=== PATIENT | female | born 1960 | race Caucasian/White ===

== ENCOUNTER 2017-05-31 06:00 | Inpatient (IN) | payer BC ==
[~2017-05-31] VITALS: Ht 167.6 cm; Wt 91.8 kg
[~2017-05-31 06:00] MED LIST: ADVIL200 MG PO; CYCLOBENZAPRINE10 MG PO; ELIQUIS2.5 MG PO; FERGON 240 MG240 MG PO; FISH OIL 1,0001 CA1 PO; MULTIPLE VITAMI1 TA1 PO; PERCOCET 10/3251 TA1 PO; PRILOSEC20 MG PO; PROZAC40 MG PO; SYNTHROID88 MCG PO; VITAMIN C1000 MG PO; VITAMIN D5000 UNIT PO
[2017-05-31] MEDS ORDERED: ZITHROMAX TRI-500 MG PO (06:41)
[2017-05-31 12:44] VITALS: Ht 167.6 cm; Wt 91.8 kg
[2017-06-08 13:03] VITALS: BP 94/62
[2017-06-08] MEDS ORDERED: Ancef 2 GM/Dextrose IV (13:56)
[2017-06-08] MEDS ORDERED: FLORANEX / LACT1 TAB PO (13:57)
[2017-06-08] MEDS ORDERED: COLACE100 MG PO (13:57)
[2017-06-08] MEDS ORDERED: ELIQUIS2.5 MG PO (13:57)
[2017-06-08] MEDS ORDERED: MIRALAX17 GM PO (13:57)
[2017-06-08] MEDS ORDERED: OxyCONTIN PO (13:58)
[2017-06-08] MEDS ORDERED: DILAUDID2 MG PO (13:58)
== END 2017-06-08 17:35 | DRG 464 ==
LOC: D.SDCHOLD 06:00 → D.MS 06:00 → D.SDCHOLD 08:15 → D.MS 12:21 → D.SDCHOLD 13:34 → D.MS 13:36
PROVIDERS: ADMIT Orthopaedic Surgery
PROC: 0SHB08Z Insertion of Spacer into Left Hip Joint, Open Approach (ICD-10-PCS; 2017-05-31)
PROC: 0SPB0JZ Removal of Synthetic Substitute from Left Hip Joint, Open Approach (ICD-10-PCS; principal; 2017-05-31 08:15)
PROC: 0SWBXJZ Revision of Synthetic Substitute in Left Hip Joint, External Approach (ICD-10-PCS; 2017-06-03)
PROC: 0SWB0JZ Revision of Synthetic Substitute in Left Hip Joint, Open Approach (ICD-10-PCS; 2017-06-04)
DX: T84.52XA Infection and inflammatory reaction due to internal left hip prosthesis, initial encounter (principal); D62 Acute posthemorrhagic anemia; K59.04 Chronic idiopathic constipation; K21.9 Gastro-esophageal reflux disease without esophagitis; F32.9 Major depressive disorder, single episode, unspecified; E03.9 Hypothyroidism, unspecified; T84.021A Dislocation of internal left hip prosthesis, initial encounter

== ENCOUNTER 2017-06-08 17:09 | Inpatient (IN) | payer BC ==
[~2017-06-08] VITALS: Ht 167.6 cm; Wt 90.3 kg
--- NOTE | ~2017-06-08 | RHP ---
PATIENT: VERENA MONROE MEDICAL RECORD: [id number] ACCOUNT: [id number] LOCATION:[facility]1113 : 60 ADMISSION DATE: 06/08/17 REHABILITATION HISTORY AND PHYSICAL EXAMINATION POST ADMISSION PHYSICIAN EXAMINATION Post-admission Physical Examination and History and Physical DATE OF ADMISSION TO THE REHAB: 06/08/2017 ADMITTING DIAGNOSES: Infection and inflammatory reaction to internal left hip prosthesis. HISTORY OF PRESENT ILLNESS: The patient is admitted to inpatient rehab for orthopedic, status post unilateral hip replacement with infection, inflammatory reaction due to an internal left hip prosthesis due to group A strep. She is 57-year-old female patient, was admitted due to concern of septic hip infection after removal of the hip prosthesis and placement of spacer, spacer became displaced and had to be reset on June 05. She reports that she has had persistent pain ever since this was placed last year. She has had intermittent episodes of redness and swelling that required lancing; has been lanced about 4 times. She reports her cultures were only taking once, but did not grow any bacteria. She lanced herself recently prior to the hospital stay. The incision was slow to heal. She was working and stated only walking with a little bit of a limp prior to hospitalization. She lives alone and was independent with her ADLs and mobility. She is currently set up for moderate to max assist with ADLs and total assist for mobility secondary to toe-touch weightbearing to left lower extremity with antibiotic spacer in place using a rolling walker, required 2-person assist. She is being followed by infectious disease secondary to left hip culture. Group A strep will require approximately 6 weeks of IV antibiotic therapy. She will return to home upon discharge from rehab. COMORBIDITIES: Include prosthetic hip infection, hip fracture, acute constipation, gastroesophageal reflux disease, chronic depression, acute anemia, hypothyroidism, and history of total hip arthroplasty. PAST MEDICAL HISTORY: Significant for thyroid problems, acid reflux, chronic back pain, menopause and depression. PAST SURGICAL HISTORY: Includes right hip replacement and revision of left hip. ALLERGIES: PENICILLIN, CODEINE, HYDROCODONE, TRAMADOL, BENADRYL, AND PHENERGAN. CURRENT MEDICATIONS: Include Floranex 460 mg daily. She is on polyethylene glycol 17 grams in 8 ounces of water daily, Protonix 40 mg daily, multivitamin daily. She is on omega 3 one cap daily. She is on vitamin D 5000 units daily, vitamin C 1000 mg daily. She is on ferrous sulfate 325 mg b.i.d., oxycodone ER 20 mg b.i.d., Dilaudid 4 mg q.4 hours p.r.n. pain, Colace 100 mg b.i.d., Flexeril 10 mg t.i.d. p.r.n. spasm, Eliquis 2.5 mg b.i.d., Ancef 2 grams q.8 hours, and MiraLax as needed. HABITS: No current alcohol or tobacco use. FAMILY HISTORY: Noncontributory. HISTORY AND PHYSICAL [id number] VERENA MONROE SOCIAL HISTORY: The patient hopes to return back home and get back to her prior level of function. REVIEW OF SYSTEMS: GENERAL: Denies weakness or fatigue. HEENT: Denies cold, cough, or congestion. CARDIOVASCULAR: Denies chest pain. PHYSICAL EXAMINATION: VITAL SIGNS: Stable, afebrile. GENERAL: A somewhat obese female, in no acute distress, alert upon exam. HEENT: Normocephalic and atraumatic. Mucosa moist. NECK: Supple. No lymphadenopathy. LUNGS: Clear at this time. HEART: Regular rate and rhythm. ABDOMEN: Benign. EXTREMITIES: Consistent with hip replacement. NEUROLOGIC: Intact. LABORATORY DATA: Her white count is 8.1, H&H 9.1 and 28.5 and platelet count is 458. Sodium is 138, potassium 3.4, BUN and creatinine of 10 and 0.6 and blood sugar was noted to be 94. Her sed rate was noted to be 100. ASSESSMENT: This is a 57-year-old female patient admitted to rehab with a working diagnosis of status post a spacer placement secondary to infected left total hip prosthesis. The patient has potential to make improvement. We instituted the following multidisciplinary therapies including to but not limited to physical, occupational, respiratory, speech, nutritional services, prosthetics and orthotics. Given her complex condition and risk for more complications, rehabilitation services cannot be provided at a low level of care such as a long-term facility. PLAN: 1. Admit to [facility] rehab for intensive inpatient therapy to include the following disciplines: A. Physical therapy to improve gait, all transfer skills and bed mobility to a modified independent level. B. Occupational therapy to improve activities of daily living to a modified independent level. C. Case management to assist with discharge planning and placement options. D. Nutrition to assist with nutritional needs. E. Rehabilitation nursing to assist in monitoring the patient's underlying medical conditions and to assist with any type of bowel or bladder management. 2. The patient's current medication and medical care will be continued. 3. The patient will be placed on standard fall precautions. 4. Watch her sed rate and CRP closely on these antibiotics. 5. Hopefully, get her back transferring well and back home prior to her next surgery. TRANSINT:[id number] Voice Confirmation ID: [id number] DOCUMENT ID: [id number] KERA notes whether there has been none or any medical/functional change since admission: - No change since prescreen. HISTORY AND PHYSICAL [id number] VERENA MONROE attests patient continues to be appropriate for IRF: - Continues to be appropriate. COREEN PARK MD CC: [id number] DICTATION DATE: 06/09/17 0851 SENIOR FRONT END WEB DEVELOPER: 06/09/[address] [facility] [address] [id number]
[~2017-06-08 17:09] MED LIST changes: +Ancef 2 GM/Dextrose IV; +COLACE100 MG PO; +DILAUDID2 MG PO; +FLORANEX / LACT1 TAB PO; +MIRALAX17 GM PO; +OxyCONTIN PO; +ZITHROMAX TRI-500 MG PO
[2017-06-08 18:31] VITALS: BP 98/71; BMI 32.2
[2017-06-08 20:02] VITALS: BP 104/65
--- NOTE | 2017-06-08 20:02 | NUR ---
RECIEVED SITTING UP ON THE SIDE OF THE BED. DENIES ANY DISCOMFORT. REQUESTING ASSISTANCE WITH PUTTING HIS PENIS IN URINAL. ASSISTED AND HAD NO RESULTS. DENIES ANY PAIN AT THIS TIME.
--- NOTE | 2017-06-08 20:02 | NUR ---
RECIEVED UP IN BED WITH EYES OPEN. REQUESTED PAIN MEDICATION EARLIER. MEDS GIVEN PER ORDERS, NO OTHER C/O VOICED. PLEASANT AND COOPERATIVE. F/C PATENT AND DRAINING CLEAR YELLOW URINE TO BEDSIDE DRAINAGE SYSTEM.
--- NOTE | 2017-06-09 00:14 | NUR ---
RESTING IN BED WITH EYES CLOSED. NO S/S OF DISTRESS OBSERVED.
[2017-06-09 05:55] LABS: BASOPHILS 0.2 % (0-2); EOSINOPHILS 2.6 % (0-7); HEMATOCRIT 28.5 % (36.0-48.0); HEMOGLOBIN 9.1 g/dL (12-16); IMMATURE GRANULOCYTES 0.9 % (0-5); LYMPHOCYTES 32.1 % (15-50); MCH 26.9 pg (26.0-34.0); MCHC 31.9 g/dL (31.0-37.0); MCV 84.3 fL (80.0-100.0); MEAN PLATELET VOLUME 8.8 fL (7.4-10.4); MONOCYTES 6.6 % (2-11); NEUTROPHILS 57.6 % (40-80); PLATELET COUNT 458 10x3/uL (130-400); RBC 3.38 10x6/uL (4.00-5.40); RDW 17.4 % (11.5-14.5); WBC 8.1 10x3/uL (4.8-10.8)
[2017-06-09 06:23] LABS: C-REACTIVE PROTEIN 9.4 mg/dL (0.0-0.9); CALC OSMOLALITY 274 mosm/kg (275-300); CALCIUM 8.2 mg/dL (8.5-10.1); CHLORIDE - SERUM 100 mmol/L (98-107); CREATINE KINASE 64 UL (21-215); CREATININE - SERUM 0.6 mg/dL (0.6-1.3); GLUCOSE 94 mg/dL (74-106); POTASSIUM - SERUM 3.4 mmol/L (3.5-5.1); SODIUM 138 mmol/L (136-145); UREA NITROGEN 10 mg/dL (7-18); eGFR NON AFRICAN AMERICAN > 90 mL/min (90-120)
[2017-06-09 07:28] LABS: ERYTHROCYTE SEDIMENTATION RATE 100 mm/hr (0-30)
[2017-06-09 08:34] VITALS: BP 92/50
--- NOTE | 2017-06-09 09:00 | NUR ---
PT AM MEDS ADMINISTERED. PT DENIES NEEDS AT THIS TIME. BED LOW. CLINR EACH.
--- NOTE | 2017-06-09 12:30 | NUR ---
PT REQ AND REC'D PAIN MEDICATION. PT ENCOURAGED TO EAT SOME LUNCH. PT ATE 15% AND STATES SHE'S "JUST NOT HUNGRY." WCTM.
--- NOTE | 2017-06-09 13:07 | NUR ---
PT REQ AND REC'D PRN PAIN MED AND FLEXERIL. WCTM.
[2017-06-09 13:59] VITALS: Ht 167.6 cm; Wt 90.3 kg
--- NOTE | 2017-06-09 16:40 | NUR ---
PT RESTING IN BED, SONY NEEDS. WCTM.
--- NOTE | 2017-06-09 17:25 | NUR ---
PT PICC LINE DRESSING CHANGE. STERILE PRECAUTIONS OBSERVED.
[2017-06-09 19:25] VITALS: BP 107/66
--- NOTE | 2017-06-09 19:25 | NUR ---
RESTING IN BED WITH EYES OPEN AND TV ON. NO S/S OF DISTRESS OBSERVED. PLEASANT AND TALKATIVE. DENIES ANY NEEDS AT THIS TIME. F/C PATENT AND DRAINING CLEAR YELLOW URINE TO BEDSIDE DRAINAGE SYSTEM.
--- NOTE | 2017-06-09 21:15 | NUR ---
RESTING IN BED AT THIS TIME WITH EYES CLOSED. NO S/S OF DISTRESS OBSERVED. CALL LIGHT AND OVERBED TABLE IN REACH.
--- NOTE | 2017-06-09 23:45 | NUR ---
WHEN ATTEMPTING TO ASSIST PT STRAIGHTEN OUT PAD UNDER HER SHE BECAME ANXIOUS AND SCARED TO TRY AND TURN OVER. ATTEMPTES TO EDUCATE ON THE NEED TO REPOSITION UNSUCCESSFUL. C/O PAIN AT 10 AND REQUESTED PAIN MEDICATION. MEDICATION GIVEN AND CONTINUED TO SPEAK WITH HER AND APPEARED TO CALM DOWN. STATED "I KNOW I'M AFRAID OF THE PAIN. THIS TIME IS WORSE. I'M AFRAID I WON'T BE ABLWE TO KEEP UP WITH THERAPY". ASKED IF IT MADE HER ANXIOUS AND STATED "OH YES". DRESSING TO LEFT HIP IS BLOOD SOAKED. UNABLE TO REMOVE THE PAD UNDER HER. PT ASKED "CAN I GET ONE OF THOSE BARS THAT GO OVER THE BED. I KNOW I WILL BED ABLE TO PICK MY BOTTOM STRAIGHT UP OFF THE BED".EDUCATED ON THE GOAL FOR THERAPY IS FOR HER TO RETURN TO PREVIOUS LEVEL OF FUNCTIONING. BLADDER TRAINING STARTED THIS SHIFT. PT REQUESTED THE F/C STAY IN. WILL INFORM MD OF SITUATION.
--- NOTE | 2017-06-10 02:20 | NUR ---
RESTING IN BED WITH EYES CLOSED. NO S/S OF DISTRESS OBSERVED. CALL LIGHT AND OVERBED TABLE IN REACH.
--- NOTE | 2017-06-10 06:10 | NUR ---
RESTING IN BED WITH EYES CLOSED. NO S/S OF DISTRESS OBSERVED. CALL LIGHT IN REACH.
--- NOTE | 2017-06-10 08:05 | NUR ---
PT AM MEDS ADMINSITERED. PT HAS ORDERED OXY AND STATES PAIN AT A 7-8. WCTM.
[2017-06-10 08:28] VITALS: BP 109/69
--- NOTE | 2017-06-10 08:45 | NUR ---
DR JUNE'S OFFICE CALLED. ORDERS TO HOLD THERAPY UNTIL DR JUNE COMES TO SEE PT.
--- NOTE | 2017-06-10 09:50 | NUR ---
PT GIVEN ORDERED KLONOPIN AT THIS TIME. PT DENIES NEEDS. WCTM.
--- NOTE | 2017-06-10 16:08 | NUR ---
PT RESTING IN BED WATCHING TV, DENIES NEEDS. WCTM .
--- NOTE | 2017-06-10 17:00 | NUR ---
DR JUNE IN TO SEE PT. HIP SPACER DISLOCATED. SCHEDULED FOR SX TOMORROW. WAITING FOR ROOM ON MED SURG AT THIS TIME.
[2017-06-10] MEDS ORDERED: KLONOPIN1 MG PO (17:54)
== END 2017-06-10 19:52 | disposition short-term general hospital (02) | DRG 949 ==
LOC: D.REHAB 17:09
PROVIDERS: ADMIT Emergency Medicine
DX: T84.52XD Infection and inflammatory reaction due to internal left hip prosthesis, subsequent encounter (principal); D62 Acute posthemorrhagic anemia; T84.021A Dislocation of internal left hip prosthesis, initial encounter; K21.9 Gastro-esophageal reflux disease without esophagitis; F32.9 Major depressive disorder, single episode, unspecified; E03.9 Hypothyroidism, unspecified; K59.09 Other constipation

== ENCOUNTER 2017-06-10 20:18 | Inpatient (IN) | payer BC ==
--- NOTE | 2017-06-10 19:30 | NUR ---
REC'D PT FROM REHAB WITH NO VISIBLE SIGNS OF DISTRESS. BED IN LOWEST POSITION AMD CALL LIGHT WITHIN REACH. PATIENT'S BANDAGE HAS VISIBLE BLOOD ON THE LEFT HIP. KELSEY MOORE STATED DR. JUNE HAS SEEN THE PT AND KNOWS ABOUT THE PT'S HIP BLEEDING. PT'S BED IN LOWEST POSITION AND CALL LIGHT WITHIN REACH. ENCOURAGED THE PATIENT TO CALL IF SHE HAS NEEDS.
[~2017-06-10 20:18] MED LIST changes: +KLONOPIN1 MG PO
[2017-06-10 21:59] LABS: BASOPHILS 0.2 % (0-2); EOSINOPHILS 1.7 % (0-7); HEMATOCRIT 28.7 % (36.0-48.0); HEMOGLOBIN 9.2 g/dL (12-16); IMMATURE GRANULOCYTES 0.3 % (0-5); MCHC 32.1 g/dL (31.0-37.0); MCV 84.2 fL (80.0-100.0); MEAN PLATELET VOLUME 8.4 fL (7.4-10.4); MONOCYTES 6.3 % (2-11); NEUTROPHILS 63.5 % (40-80); PLATELET COUNT 441 10x3/uL (130-400); RBC 3.41 10x6/uL (4.00-5.40); RDW 17.5 % (11.5-14.5); WBC 9.9 10x3/uL (4.8-10.8)
[2017-06-10 22:04] LABS: CALC OSMOLALITY 276 mosm/kg (275-300); CALCIUM 8.5 mg/dL (8.5-10.1); CARBON DIOXIDE 29.5 mmol/L (21.0-32.0); CHLORIDE - SERUM 105 mmol/L (98-107); CREATININE - SERUM 0.5 mg/dL (0.6-1.3); GLUCOSE 107 mg/dL (74-106); POTASSIUM - SERUM 3.7 mmol/L (3.5-5.1); SODIUM 140 mmol/L (136-145); UREA NITROGEN 8 mg/dL (7-18); eGFR NON AFRICAN AMERICAN > 90 mL/min (90-120)
[2017-06-10 23:00] VITALS: BP 118/72; BMI 32.2
[2017-06-11] VITALS: BP 126/72
--- NOTE | 2017-06-11 00:30 | NUR ---
RECEIVED CARE OF PATIENT.
[2017-06-11 04:00] VITALS: BP 133/80
--- NOTE | 2017-06-11 07:40 | NUR ---
PT AOX4 RESP EVEN AND NONLABORED PT DENIES NEEDS AT THIS TIME IV TO RIGHT UPPER ARM PATENT AND INTACT AT THIS TIME SRX2 BED AT LOWEST SETTING CALL LIGHT WITHIN REACH WILL CONTINUE TO MONITOR
[2017-06-11 08:32] VITALS: BP 122/78
--- NOTE | 2017-06-11 10:37 | NUR ---
Patient Name: VERENA MONROE Admission Status: Elective Accout number: [id number] Admission Date: 06-10-2017 : 1960 Admission Diagnosis:DISLOCATION OF INTERNAL RIGHT HIP PROSTHESIS, INIT ENCN Attending: JAY JUNE Current LOS: 1 Anticipated DC Date: 06-14-2017 Planned Disposition: Residential Facility Primary Insurance: [employer] [facility] Discharge Planning Comments: CM MET WITH PATIENT REGARDING D/C NEEDS AND PLANS. PATIENT STATED SHE WILL GO HOME WITH HOME HEALTH AT DISCHARGE. PATIENT STATED HER MOTHER WILL DRIVE HER AND THERE IS ONE STEP TO ENTER HOME AND NO STAIRS INSIDE. PATIENT STATED SHE HAS BEEN INDEPENDENT WITH HER CARE AND HAS A WALKER, AND TOILET SEAT WITH HANDLES AT HOME. PATIENTS PCP IS DR. HOFFMAN IN [place] AND USES [facility]. PATIENT STATED SHE WILL CHOOSE HOME HEALTH WEDNESDAY (WANTS TO TALK WITH FRIENDS FIRST). CM WILL CONTINUE TO FOLLOW PATIENT WITH D/C NEEDS AND PLANS. PCP DR. HOFFMAN IN [place] [facility] [place] [phone] [place] ([facility] [place]) [phone] Recruiter: Miladys Browning Is the patient Alert and Oriented? Yes 0 * How many steps to enter\exit or inside your home? 1 0 * PCP DR. HOFFMAN ([place]) 0 * Pharmacy [facility] IN [place] ON [facility] 0 * Preadmission Environment Home Alone 0 * ADLs Independent 0 * Equipment Walker 0 * Other Equipment TOILET SEAT WITH HANDLES 0 * List name and contact numbers for known caregivers / representatives who currently or will assist patient after discharge: [place] [phone] ([facility] [place]) 0 * Community resources currently utilized None 0 * Additional services required to return to the preadmission environment? Yes 0 * Can the patient safely return to the preadmission environment? Yes 0 * Has this patient been hospitalized within the prior 30 days at any hospital? Yes 0 Grand Total: 0
[2017-06-11 12:12] VITALS: BP 122/77
[2017-06-11 16:04] VITALS: BP 119/66
[2017-06-11 20:00] VITALS: BP 109/68
[2017-06-12] VITALS: BP 123/73
[2017-06-12 04:00] VITALS: BP 119/79
--- NOTE | 2017-06-12 07:40 | NUR ---
PT AOX4 RESP EVEN AND NONLABORED PT DENIES NEEDS AT THIS TIME IV TO RIGHT UPPER ARM PATENT AND INTACT AT THIS TIME. SRX2 BED AT LOWEST SETTING CALL LIGHT WITHIN REACH WILL CONTINUE TO MONITOR
[2017-06-12 08:40] VITALS: BP 124/76
[2017-06-12 10:54] VITALS: BP 133/69
[2017-06-13] VITALS: BP 127/80
[2017-06-13 04:00] VITALS: BP 134/81
--- NOTE | 2017-06-13 04:05 | NUR ---
PT RESTING QUIETLY, EYES CLOSED. PAIN WELL CONTROLLED WITH BILL OF MATERIALS CLERK. DRESSING TO LEFT HIP C/D/I. NO DISTRESS NOTED. CONTINUE TO MONITOR.
[2017-06-13 05:32] LABS: HEMATOCRIT 27.4 % (36.0-48.0); HEMOGLOBIN 8.6 g/dL (12-16); MCH 26.5 pg (26.0-34.0); MCHC 31.4 g/dL (31.0-37.0); MCV 84.6 fL (80.0-100.0); MEAN PLATELET VOLUME 8.7 fL (7.4-10.4); RBC 3.24 10x6/uL (4.00-5.40); RDW 17.1 % (11.5-14.5); WBC 13.8 10x3/uL (4.8-10.8)
--- NOTE | 2017-06-13 07:40 | NUR ---
A&O, DENIES NEEDS, NO DISTRESS NOTED, BED LOWEST POSITION, CALL LIGHT IN REACH, BED LOWEST POSITION, BANDAGE TO LEFT HIP C/D/I, WILL CONTINUE TO MONITOR
[2017-06-13 10:11] VITALS: BP 117/84
[2017-06-13 12:43] VITALS: BP 100/64
[2017-06-13 20:00] VITALS: BP 104/64
[2017-06-14] VITALS: BP 114/64
--- NOTE | 2017-06-14 01:21 | NUR ---
PT RESTING QUIETLY, EYES CLOSED. LEFT HIP DRESSING C/D/I. EMPTIED KATJA DRAIN 30 MLS BLOODY DRAINAGE AT START OF SHIFT. PT USES OVERHEAD TRAPEZE TO SHIFT POSITION IN BED. PAIN WELL CONTROLLED WITH WATER USE INSPECTOR. WILL CONTINUE TO MONITOR.
[2017-06-14 04:00] VITALS: BP 97/61
[2017-06-14 05:40] LABS: HEMOGLOBIN 8.2 g/dL (12-16); MCH 27.2 pg (26.0-34.0); MCHC 31.5 g/dL (31.0-37.0); MCV 86.1 fL (80.0-100.0); MEAN PLATELET VOLUME 8.7 fL (7.4-10.4); RBC 3.02 10x6/uL (4.00-5.40); RDW 17.5 % (11.5-14.5)
[2017-06-14 05:43] LABS: WBC 8.9 10x3/uL (4.8-10.8)
--- NOTE | 2017-06-14 07:15 | NUR ---
AWAKE AND ALERT AT THIS TIME. BED ALARM ON AND CALL GLORIA COLLADO REACH. SRX2 WITH BED IN LOWEST POSITION AND SRX2. IV INFUSING TO RIGHT PICC LINE. WILL CONTINUE WITH PLAN OF CARE.
--- NOTE | 2017-06-14 07:58 | NUR ---
SCHEDULED MEDICATIONS ADMINISTERED AT THIS TIME WELL PRN FLEXERIL FOR MUSCLE SPASMS. TAKEN WITHOUT DIFFICULTY. DENIES FURTHER NEEDS AT THIS TIME. WILL CONTINUE WITH PLAN OF CARE.
[2017-06-14 08:43] VITALS: BP 100/62
--- NOTE | 2017-06-14 13:15 | NUR ---
RECEIVING BED BATH BY BOBBIN STRIPPER AT THIS TIME. KATJA DRAIN TO LEFT HIP EMPTIED AND 50ML OF BLOOD GOTTEN FROM DRAIN. DRAIN COMPRESSED AND DRESSING TO LEFT HIP C/D/I.
--- NOTE | 2017-06-14 15:09 | NUR ---
PRN PERCOCET ADMINISTERED FOR PAIN 5/10 AT THIS TIME.
[2017-06-14 16:13] VITALS: BP 99/47
--- NOTE | 2017-06-14 19:30 | NUR ---
PT LYING IN BED STATED NO NEEDS AT THIS TIME, BED IN LOW POSITION, CALL LIGHT IN REAVCH NO SIGNS OF DISTRESS, WILL CONTINUE WITH PLAN OF CARE
[2017-06-14 19:57] VITALS: BP 97/62
--- NOTE | 2017-06-14 22:30 | NUR ---
PT LYING IN BED, WANTED PILLOW BELOW HER LEFT HIP TO AID IN KEEPING HER LEFT LEG TURNED INWARD, ALSO WANTED A SET OF BLANKETS AT THE END OF HER FEET TO WHERE HER FEET WERE PUSHING AGAINST IT. PT STATED PAIN STILL AT ABOUT A 6. FLEXERILL AVAIL AFTER MIDNIGHT. PT JUST HAD 9 O'CLOCK MEDS WHICH INCLUDED PAIN MEDS, ADVISED TO GIVE IT A LITTLE TIME TO WORK, REMINDED PT OF MAGICIAN HELPER WELL.
[2017-06-15 00:11] VITALS: BP 98/60
--- NOTE | 2017-06-15 02:00 | NUR ---
PT IN BED WITH NO DISTRESS. RESPIRATIONS EVEN AND UNLABORED. SIDE RAILS X 2. BED IS LOW. CALL LIGHT IN REACH.
--- NOTE | 2017-06-15 03:46 | NUR ---
PATIENT RESTING WITH EYES CLOSED AND NO VISIBLE SIGNS OF DISTRESS. BED IN LOWEST POSITION AND CALL LIGHT WITHIN REACH.
[2017-06-15 04:00] VITALS: BP 100/63
--- NOTE | 2017-06-15 07:05 | NUR ---
AWAKE AND ALERT. DENIES NEEDS AT THIS TIME. CALL LIGHT IN REACH, WILL CONTINUE WITH PLAN OF CARE.
[2017-06-15 09:07] VITALS: BP 110/63
--- NOTE | 2017-06-15 09:12 | NUR ---
SCHEDULED MEDICATIONS ADMINISTERED AND PRN FLEXERIL ADMINISTERED FOR MUSCLE SPASMS. IN BED WITH CALL LIGHT IN REACH, BED IN LOWEST POSITION AND WHEELS LOCKED. WILL CONTINUE WITH PLAN OF CARE.
--- NOTE | 2017-06-15 10:22 | NUR ---
PRN DILAUDID ADMINISTERED FOR PAIN PER ORDER. PORTER D/C WITH CATH TIP INTACT PER ORDER AND IV SALINE LOCKED AND EMBOSSING MACHINE TENDER D/C.
[2017-06-15 10:43] LABS: HEMATOCRIT 27.5 % (36.0-48.0); HEMOGLOBIN 8.6 g/dL (12-16); MCH 26.7 pg (26.0-34.0); MCHC 31.3 g/dL (31.0-37.0); MCV 85.4 fL (80.0-100.0); MEAN PLATELET VOLUME 9.2 fL (7.4-10.4); PLATELET COUNT 418 10x3/uL (130-400); RBC 3.22 10x6/uL (4.00-5.40); RDW 17.2 % (11.5-14.5); WBC 8.6 10x3/uL (4.8-10.8)
[2017-06-15 10:51] LABS: C-REACTIVE PROTEIN 2.7 mg/dL (0.0-0.9); CALC OSMOLALITY 278 mosm/kg (275-300); CALCIUM 8.4 mg/dL (8.5-10.1); CARBON DIOXIDE 24.1 mmol/L (21.0-32.0); CHLORIDE - SERUM 105 mmol/L (98-107); CREATININE - SERUM 0.7 mg/dL (0.6-1.3); POTASSIUM - SERUM 3.4 mmol/L (3.5-5.1); SODIUM 138 mmol/L (136-145); UREA NITROGEN 8 mg/dL (7-18); eGFR NON AFRICAN AMERICAN > 90 mL/min (90-120)
[2017-06-15 10:52] LABS: GLUCOSE 193 mg/dL (74-106)
--- NOTE | 2017-06-15 10:54 | NUR ---
CM REASSESSMENT NOTE: CM MET WITH PATIENT AND SHE SIGNED THE LUC FORM FOR [facility] IN [place]. IV ANTIBIOTIC ORDER WAS FAXED TO [facility] IN [place]. DISCHARGE WILL BE LATER IN THE WEEK PER CLINTON DUONG. CM WILL CONTINUE TO FOLLOW PATIENT WITH D/C NEEDS AND PLANS. [facility]- [phone] [place] ([place]) [phone] ([place])
[2017-06-15 11:35] LABS: ANISOCYTOSIS OCC; EOSINOPHILS 4 % (0-7); HYPOCHROMASIA OCC; LYMPHOCYTES 36 % (15-50); MONOCYTES 1 % (2-11); NEUTROPHILS 57 % (40-80); PLATELET ESTIMATE INCREASED
[2017-06-15 12:14] LABS: ERYTHROCYTE SEDIMENTATION RATE 80 mm/hr (0-30)
[2017-06-15 12:31] VITALS: BP 108/67
--- NOTE | 2017-06-15 13:05 | NUR ---
KATJA DRAIN TO LEFT HIP D/C WITH TIP INTACT. PT TOLERATED WITHOUT MINIMAL COMPLAINT OF PAIN.
--- NOTE | 2017-06-15 15:40 | NUR ---
PRN DILAUDID ADMINISTERED PER ORDER.
--- NOTE | 2017-06-15 16:29 | NUR ---
VOIDED ON BEDSIDE COMMODE WITHOUT DIFFICULTY.
--- NOTE | 2017-06-15 19:30 | NUR ---
PT IS LYING IN BED ON HER BACK, EYES ARE CLOSED , TV IS ON, PT AWOKE SLIGHTLY WHEN ASSESSMENT WAS BEING DONE, STATED NO NEEDS AT THIS TIME. BED IS IN LOW POSITION CALL LIGHT IN REACH NO SIGNS OF DISTRESS, WILL CONTINUE WITH PLAN OF CARE
[2017-06-15 20:00] VITALS: BP 114/69
[2017-06-16] VITALS: BP 102/61
--- NOTE | 2017-06-16 02:00 | NUR ---
PT IN BED WITH NO DISTRESS. RESPIRATIONS EVEN AND UNLABORED. SIDE RAILS X 2. BED IS LOW. CALL LIGHT IN REACH.
[2017-06-16 04:00] VITALS: BP 110/62
[2017-06-16 06:12] LABS: HEMATOCRIT 26.5 % (36.0-48.0); HEMOGLOBIN 8.3 g/dL (12-16); MCH 26.7 pg (26.0-34.0); MCHC 31.3 g/dL (31.0-37.0); MCV 85.2 fL (80.0-100.0); MEAN PLATELET VOLUME 8.8 fL (7.4-10.4); RBC 3.11 10x6/uL (4.00-5.40); RDW 17.2 % (11.5-14.5); WBC 8.2 10x3/uL (4.8-10.8)
[2017-06-16 06:42] LABS: CALC OSMOLALITY 272 mosm/kg (275-300); CALCIUM 8.4 mg/dL (8.5-10.1); CARBON DIOXIDE 25.4 mmol/L (21.0-32.0); CHLORIDE - SERUM 103 mmol/L (98-107); CREATININE - SERUM 0.5 mg/dL (0.6-1.3); GLUCOSE 100 mg/dL (74-106); POTASSIUM - SERUM 3.7 mmol/L (3.5-5.1); SODIUM 137 mmol/L (136-145); UREA NITROGEN 9 mg/dL (7-18); eGFR NON AFRICAN AMERICAN > 90 mL/min (90-120)
--- NOTE | 2017-06-16 07:34 | NUR ---
LYING SUPINE WITH RESPIRATIONS EVEN AND NON LABORED. TOLU MAT ALARM ON AND IN USE. CALL LIGHT IN REACH, WILL CONTINUE WITH PLAN OF CARE.
--- NOTE | 2017-06-16 07:50 | NUR ---
ASSISTED PT UP TO BEDSIDE COMMODE WITH ONE PERSON ASSIST AND WALKER.
[2017-06-16 08:26] VITALS: BP 105/66
--- NOTE | 2017-06-16 09:13 | NUR ---
SCHEDULED MEDICATIONS ADMINISTERED AT THIS TIME WELL PRN FLEXERIL. TAKEN WITHOUT DIFFICULTY. DENIES FURTHER NEEDS. WILL CONTINUE WITH PLAN OF CARE.
--- NOTE | 2017-06-16 11:01 | NUR ---
PRN DILAUDID ADMINISTERED AT THIS TIME FOR PAIN 6/10 INCISIONALLY.
[2017-06-16 11:51] VITALS: BP 108/67
--- NOTE | 2017-06-16 14:00 | NUR ---
DRESSING CHANGE TO RIGHT PICC LINE DONE USING STERILE TECNIQUE.
--- NOTE | 2017-06-16 14:29 | NUR ---
CM REASSESSMENT NOTE: BRANDI CALLED FROM [place] AND PATIENT IS OUT OF NETWORK. PATIENT STATED TO TRY [facility] OR [facility]. [facility] DOES NOT SERVICE AREA AND REFERRAL HAS BEEN SENT TO [facility]. WAITING FOR APPROVAL FOR HOME HEALTH NEEDS. TONIA FISH WILL BE SERVICING PATIENT WITH HER ANTIBIOTIC. CM WILL CONTINUE TO FOLLOW PATIENT WITH D/C NEEDS AND PLANS.
[2017-06-16 16:04] VITALS: BP 103/60
--- NOTE | 2017-06-16 17:25 | NUR ---
PRN DILAUDID ADMINISTERED AT THIS TIME PER ORDER.
[2017-06-16 20:00] VITALS: BP 119/77
--- NOTE | 2017-06-17 01:02 | NUR ---
PRN DILAUDID ADMINISTERED FOR PAIN 03/29.
[2017-06-17 04:00] VITALS: BP 102/63
--- NOTE | 2017-06-17 07:30 | NUR ---
RECIEVED PT DURING WALKING ROUNDS, PT RESTING IN BED WITH COMPLAINTS OF PAIN OF A 6 ON A SCALE OF 1-10. MEDICATION TO BE GIVEN PER ORDER. ASSESSMENT DONE PER FLOWSHEET. BED IN LOW POSITION AND CALL LIGHT WITHIN REACH. WILL CONTINUE TO MONITOR.
[2017-06-17 09:46] VITALS: BP 103/65
[2017-06-17 12:19] VITALS: BMI 32.1
--- NOTE | 2017-06-17 12:31 | NUR ---
CM REASSESSMENT NOTE: PATIENT WILL HAVE [facility] AT DISCHARGE. [facility] HAS ACCEPTED PATIENT AND WILL COORDINATE DELIVERY WITH [facility]. JASE AT [facility] STATED TO CALL SOON WE KNOW D/C DAY. P- [phone] F- [phone] JASE De La [place]ente AT [phone]
[2017-06-17 12:36] VITALS: BP 105/58
--- NOTE | 2017-06-17 13:06 | NUR ---
DRESSING CHANGED TO LEFT HIP AT THIS TIME PER ORDER.
[2017-06-17 16:37] VITALS: BP 105/64
--- NOTE | 2017-06-17 19:25 | NUR ---
AWAKE AND ALERT. HOB @ 30. DENIES ANY NEEDS AT THIS TIME. CALL LIGHT IN REACH. WILL CONTINUE TO MONITOR.
[2017-06-17 20:00] VITALS: BP 104/63
[2017-06-18 04:00] VITALS: BP 99/60
--- NOTE | 2017-06-18 04:00 | NUR ---
PRN DILAUDID AND FLEXERIL ADMINISTERED AT THIS TIME FOR PAIN 03/29. PT TRANSFERRED TO [facility] WITH MINIMAL ASSIST. DENIES ANY OTHER NEEDS AT THIS TIME. WILL CONTINUE TO MONITOR. CALL LIGHT IN REACH.
--- NOTE | 2017-06-18 08:00 | NUR ---
ASSESSMENT PER FLOW SHEET.PT WITHOUT DISTRESS.CALL LIGHT IN REACH
[2017-06-18 08:21] VITALS: BP 108/61
[2017-06-18 08:22] VITALS: BP 108/61
[2017-06-18] MEDS ORDERED: ELIQUIS2.5 MG PO (08:58)
[2017-06-18] MEDS ORDERED: Ancef 2 GM/Dextrose IV (08:58)
[2017-06-18] MEDS ORDERED: OxyCONTIN PO (08:59)
[2017-06-18] MEDS ORDERED: DILAUDID2 MG PO (08:59)
[2017-06-18] MEDS ORDERED: DILAUDID4 MG PO (09:12)
[2017-06-18 12:40] VITALS: BP 110/62
[2017-06-18 15:59] VITALS: BP 107/62
--- NOTE | 2017-06-18 19:35 | NUR ---
REMAINS UNCHANGED FROM INITIAL SHIFT ASSESSMENT.CONT PLAN OF CARE
[2017-06-18 20:00] VITALS: BP 106/62
[2017-06-19] VITALS: BP 93/55
[2017-06-19 04:00] VITALS: BP 95/54
--- NOTE | 2017-06-19 08:00 | NUR ---
ASSESSMENT PER FLOW SHEET.PT WITHOUT DSTRESS.CALL LIGHT IN REACH
[2017-06-19 11:13] VITALS: BP 107/69
[2017-06-19 12:54] VITALS: BP 114/67
--- NOTE | 2017-06-19 14:33 | NUR ---
LATE Entry 0915 PATIENT FOR DISCHARGE TO HOME TODAY WITH INFUSION THERAPY AND HOME HEALTH. TC TO [facility] AND SPOKE WITH NEGIN. FAXED CLINICAL UPDATE. PHONE [phone] FAX [phone]. RECEIVED TC FROM VERENA WITH [facility] AT [phone]. REVIEWED DISCHARGE. PRIMARY NURSE,MAYNOR, SPOKE WITH VERENA REGARDING TIMING OF IVAB'S AND WOUND VAC CARE. CM HAD REVIEWED MD DISCHARGE NOTE AND PLAN. TC TO [facility], SPOKE WITH DAVY PHAM TO ADVISE OF DISCHARGE FOR TODAY. DESHAWN IS TO CALL VERENA WITH [facility] TO COORDINATE SERVICES BETWEEN HOME HEALTH PROVIDERS. REVIEWED ABOVE WITH PRIMARY NURSE.
--- NOTE | 2017-06-19 16:21 | NUR ---
DISCHARGE INSTRUCTIONS,STATES UNDERSTANDING.LEFT UNIT VIA WHEELCHAIR FOR TRANSPORT HOME
--- NOTE | 2017-06-21 11:28 | OP ---
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 PROCEDURES: 1. Removal of previous dislocated cement spacer. 2. Replacement of new cement spacer. 3. I&D of skin, subcutaneous tissue, portions of fat, fascia, muscle and bone with approximately 60 cm. SURGEON: Jay June MD. ANESTHESIA: General. INTRAOPERATIVE COMPLICATIONS: None. SUMMARY OF PATHOLOGIC FINDINGS: The wound was draining and the hip prosthesis was dislocated consistent with the preoperative x-ray. It was perched on the lateral side of the acetabulum. To keep this from happening yet another third time, a spacer was put in with a ball and a malinda to maintain the aperture. OPERATIVE SUMMARY IN DETAIL: After obtaining the appropriate preoperative orthopedic surgery consent as well as anesthetic consultation, evaluation and clearance, the patient was brought to the operating room and placed on the operating table in supine position. After adequate general laryngeal mask airway was administered, the patient was placed in a right lateral decubitus position. All pressure points were well padded to include down leg peroneal nerve pad as well as axillary roll. The patient was held firmly to the operating table using the vacuum pack suction system. Left lower extremity and hip were then prepped and draped in routine sterile fashion. Previously utilized incision was utilized again but only the upper two-thirds were utilized. This was taken down to the level of the previously closed IT band, which was incised again. Ethibond sutures were removed. Gluteus medius and minimus were again elevated and the #5 Ethibonds were removed. The previously placed cement spacer was removed. At this point, a combination of a scalpel and rongeur was utilized to remove anything that appeared nonviable, clots, et cetera, as well as portions of skin, fat, fascia, muscle and bone. The wound was then irrigated with a pulsatile lavage waiter/waitress bar, again, for a total of approximately 6 liters. Having completed this, a 300 mm x 11 malinda was placed down the shaft of the femur to maintain aperture and a vancomycin-laden cement spacer was placed in the acetabulum. Having completed this, the wound was closed with #5 Ethibond again, reapproximation of the gluteus medius and minimus as well as the IT band. This was then followed by #1 Vicryl, 2-0 Vicryl and skin rodrick. Please note that the Garcia-Sheppard was put in the deepest layer and pulled out the distal aspect anterior of the wound. The Agrcia-Sheppard was then sewn into place. Final closure was achieved with skin rodrick. Sterile dressings were applied. The patient was awakened and taken to recovery room in stable condition. All final needle and sponge counts were correct. TRANSINT:[id number] Voice Confirmation ID: [id number] DOCUMENT ID: [id number] OPERATIVE REPORT [id number] VERENA MONROE MD, JAY TRAYLOR at 1128 CC: [id number] DICTATION DATE: 06/12/1738 PRODUCTION CHECKER: 06/12/17 1014 DIS IN 06/19/17 [id number] [place] [address]
[2017-07-21] MEDS ORDERED: FERROUS GLUCON324 MG PO (15:25)
== END 2017-06-19 16:21 | disposition home health service (06) | DRG 498 ==
LOC: D.MS 20:18
PROVIDERS: ADMIT Orthopaedic Surgery
PROC: 0SPB08Z Removal of Spacer from Left Hip Joint, Open Approach (ICD-10-PCS; principal; 2017-06-10)
PROC: 0QBC0ZZ Excision of Left Lower Femur, Open Approach (ICD-10-PCS; 2017-06-10)
PROC: 0SHB08Z Insertion of Spacer into Left Hip Joint, Open Approach (ICD-10-PCS; 2017-06-10)
DX: T84.021A Dislocation of internal left hip prosthesis, initial encounter (principal); D62 Acute posthemorrhagic anemia; K59.09 Other constipation; E03.9 Hypothyroidism, unspecified

== ENCOUNTER → 2017-07-02 14:58 | Outpatient (CLI) | payer BC ==
[2017-06-17 12:19] VITALS: BMI 32.1
[~2017-07-02 14:58] MED LIST changes: +BACTRIM DS TABL1 TAB PO; +DILAUDID4 MG PO; +DOXYCYCLINE HY100 M2 PO; +FERROUS GLUCON324 MG PO
[2017-07-02 17:03] LABS: BASOPHILS 0.2 % (0-2); EOSINOPHILS 1.1 % (0-7); HEMATOCRIT 34.2 % (36.0-48.0); HEMOGLOBIN 10.7 g/dL (12-16); IMMATURE GRANULOCYTES 0.1 % (0-5); LYMPHOCYTES 34.2 % (15-50); MCH 26.2 pg (26.0-34.0); MCHC 31.3 g/dL (31.0-37.0); MCV 83.6 fL (80.0-100.0); MEAN PLATELET VOLUME 10.4 fL (7.4-10.4); MONOCYTES 7.1 % (2-11); NEUTROPHILS 57.3 % (40-80); PLATELET COUNT 455 10x3/uL (130-400); RBC 4.09 10x6/uL (4.00-5.40); RDW 15.6 % (11.5-14.5); WBC 9.1 10x3/uL (4.8-10.8)
[2017-07-02 17:22] LABS: ALBUMIN 3.7 g/dL (3.4-5.0); ALKALINE PHOSPHATASE 229 U/L (46-116); ALT (SGPT) 29 U/L (10-68); BILIRUBIN - TOTAL 0.46 mg/dL (0.2-1.3); CALC OSMOLALITY 276 mosm/kg (275-300); CALCIUM 9.4 mg/dL (8.5-10.1); CHLORIDE - SERUM 102 mmol/L (98-107); CREATININE - SERUM 0.6 mg/dL (0.6-1.3); GLUCOSE 78 mg/dL (74-106); POTASSIUM - SERUM 3.6 mmol/L (3.5-5.1); PROTEIN - SERUM 7.9 g/dL (6.4-8.2); SODIUM 140 mmol/L (136-145); UREA NITROGEN 10 mg/dL (7-18); eGFR NON AFRICAN AMERICAN > 90 mL/min (90-120)
[2017-07-02 17:23] LABS: C-REACTIVE PROTEIN 0.2 mg/dL (0.0-0.9)
[2017-07-02 18:26] LABS: ERYTHROCYTE SEDIMENTATION RATE 48 mm/hr (0-30)
== END | disposition home or self-care (01) ==
LOC: D.LABREF 14:58
PROVIDERS: Student in an Organized Health Care Education/Training Program
DX: Z51.81 Encounter for therapeutic drug level monitoring (principal); Z79.2 Long term (current) use of antibiotics

== ENCOUNTER 2017-07-22 05:32 | Inpatient (IN) | payer BC ==
[2017-07-21 16:06] LABS: BASOPHILS 0.1 % (0-2); EOSINOPHILS 1.4 % (0-7); HEMATOCRIT 32.3 % (36.0-48.0); HEMOGLOBIN 9.9 g/dL (12-16); IMMATURE GRANULOCYTES 0.2 % (0-5); LYMPHOCYTES 21.2 % (15-50); MCH 25.7 pg (26.0-34.0); MCHC 30.7 g/dL (31.0-37.0); MCV 83.9 fL (80.0-100.0); MEAN PLATELET VOLUME 9.5 fL (7.4-10.4); NEUTROPHILS 72.1 % (40-80); PLATELET COUNT 429 10x3/uL (130-400); RBC 3.85 10x6/uL (4.00-5.40); RDW 15.3 % (11.5-14.5); WBC 10.5 10x3/uL (4.8-10.8)
[2017-07-21 16:23] LABS: APPEARANCE CLEAR (CLEAR); BILIRUBIN NEGATIVE (NEGATIVE); COLOR YELLOW (YELLOW); GLUCOSE NEGATIVE (NEGATIVE); KETONE NEGATIVE (NEGATIVE); NITRITE NEGATIVE (NEGATIVE); PROTEIN NEGATIVE (NEGATIVE); SPECIFIC GRAVITY 1.015 (1.005-1.020); UROBILINOGEN NORMAL (NORMAL)
[2017-07-21 16:25] LABS: APTT 29.7 SECONDS (22.8-39.4)
[2017-07-21 16:42] LABS: CALC OSMOLALITY 282 mosm/kg (275-300); CALCIUM 9.5 mg/dL (8.5-10.1); CARBON DIOXIDE 28.9 mmol/L (21.0-32.0); CHLORIDE - SERUM 102 mmol/L (98-107); CREATININE - SERUM 0.6 mg/dL (0.6-1.3); GLUCOSE 117 mg/dL (74-106); POTASSIUM - SERUM 3.9 mmol/L (3.5-5.1); SODIUM 141 mmol/L (136-145); UREA NITROGEN 14 mg/dL (7-18); eGFR NON AFRICAN AMERICAN > 90 mL/min (90-120)
[2017-07-21 17:22] LABS: ERYTHROCYTE SEDIMENTATION RATE 39 mm/hr (0-30)
[2017-07-22] VITALS (10 sets, daily range): BP systolic 105–128; BP diastolic 64–80; BMI 30.2; BMI 30.7
[~2017-07-22 05:32] MED LIST changes: -BACTRIM DS TABL1 TAB PO; -DOXYCYCLINE HY100 M2 PO
--- NOTE | 2017-07-22 14:05 | NUR ---
PILLOWS BETWEEN ARMS
[2017-07-23] VITALS: BP 124/65
[2017-07-23 05:26] VITALS: BP 112/65
[2017-07-23 06:36] LABS: HEMATOCRIT 30.6 % (36.0-48.0); HEMOGLOBIN 9.7 g/dL (12-16); MCH 26.4 pg (26.0-34.0); MCHC 31.7 g/dL (31.0-37.0); MCV 83.2 fL (80.0-100.0); MEAN PLATELET VOLUME 9.6 fL (7.4-10.4); RBC 3.68 10x6/uL (4.00-5.40); RDW 14.6 % (11.5-14.5); WBC 10.5 10x3/uL (4.8-10.8)
--- NOTE | 2017-07-23 07:30 | NUR ---
RECIEVED PT DURING WALKING ROUNDS, PT RESTING IN BED WITH NO COMPLAINTS OF PAIN OR DISCOMFORT AT THIS TIME. ASSESSMENT DONE PER FLOWSHEET. BED IN LOW POSITION AND CALL LIGHT WITHIN REACH. WILL CONTINUE TO MONITOR.
[2017-07-23 08:38] VITALS: BP 113/72
--- NOTE | 2017-07-23 13:45 | NUR ---
Patient had home health with [facility] previously. She was very pleased with the care and wishes to resume care with them. TC to [facility]. CM spoke with [facility]. Faxed referral to advise of possible weekend discharge.
[2017-07-23 17:06] VITALS: BP 140/84
--- NOTE | 2017-07-23 20:00 | NUR ---
LEFT HIP AQUACEL DRESSING LEAKING BLOOD. REMOVED SATURATED DRESSING, CLEANED WITH WOUND CLEANSER AND DRESSED WITH MEPILEX AG DRESSING. NO REDNESS AND EDGES APPROXIMATED WITH SOPHIE INTACT. NO OTHER NEEDS. WILL CONTINUE TO MONITOR.
[2017-07-23 21:24] VITALS: BP 139/83
[2017-07-23 23:56] VITALS: BP 133/76
[2017-07-24 05:05] VITALS: BP 136/76
[2017-07-24 06:12] LABS: HEMATOCRIT 30.5 % (36.0-48.0); HEMOGLOBIN 9.7 g/dL (12-16); MCH 26.4 pg (26.0-34.0); MCHC 31.8 g/dL (31.0-37.0); MCV 82.9 fL (80.0-100.0); MEAN PLATELET VOLUME 9.4 fL (7.4-10.4); RBC 3.68 10x6/uL (4.00-5.40); RDW 14.8 % (11.5-14.5)
--- NOTE | 2017-07-24 08:00 | NUR ---
ASSESSMENT COMPLETE. SL TO R HAND AND L WRIST. DRESSING TO L HIP C/D/I. DENIES ANY COMPLAINT OF PAIN AT THIS TIME.
[2017-07-24 08:33] VITALS: BP 137/88
--- NOTE | 2017-07-24 10:20 | NUR ---
SL TO R HAND REMOVED. CATHETER TIP INTACT.
[2017-07-24 12:26] VITALS: BP 125/82
--- NOTE | 2017-07-24 16:00 | NUR ---
DENIES ANY NEEDS AT THIS TIME.
[2017-07-24 17:06] VITALS: BP 135/79
[2017-07-24 22:03] VITALS: BP 129/87
[2017-07-25 00:26] VITALS: BP 109/77
[2017-07-25 05:47] VITALS: BP 138/95
[2017-07-25 06:12] LABS: HEMATOCRIT 33.9 % (36.0-48.0); HEMOGLOBIN 10.7 g/dL (12-16); MCH 26.4 pg (26.0-34.0); MCHC 31.6 g/dL (31.0-37.0); MCV 83.5 fL (80.0-100.0); MEAN PLATELET VOLUME 9.4 fL (7.4-10.4); RBC 4.06 10x6/uL (4.00-5.40); WBC 7.3 10x3/uL (4.8-10.8)
--- NOTE | 2017-07-25 07:30 | NUR ---
ASSESSMENT COMPLETE. SL TO L FA. DRESSING TO L HIP INTACT. DENIES ANY NEEDS AT THIS TIME. SITTING UP IN CHAIR.
[2017-07-25 08:10] VITALS: BP 134/96
--- NOTE | 2017-07-25 09:32 | OP ---
PATIENT NAME: VERENA MONROE MEDICAL RECORD: [id number] :60 LOCATION:[id number] ADMISSION DATE:07/22/17 SURGEON: JAY JUNE MD DATE OF OPERATION: 07/22/2017 PREOPERATIVE DIAGNOSIS: Prior hip infection with a spacer in place. POSTOPERATIVE DIAGNOSIS: Prior hip infection with a spacer in place. PROCEDURE: Removal of antibiotic cement spacer with left hip revision, all components. SURGEON: Jay June MD ANESTHESIA: General. INTRAOPERATIVE COMPLICATIONS: None. SUMMARY OF PATHOLOGIC FINDINGS: The wound bed was in excellent overall condition and a good maintained space was available to restore leg length. ESTIMATED BLOOD LOSS: 900 cc. Two units of blood given intraoperatively. OPERATIVE SUMMARY IN DETAIL: After obtaining the appropriate orthopedic surgery consent as well as anesthetic consultation, evaluation, and clearance; the patient was brought to the operating room and placed on the operating table in supine position. After general laryngeal mask was administered, the patient was placed in a right lateral decubitus position. All pressure points were well padded to include down leg peroneal pad as well as axillary roll. The patient was held firmly to the operating table using vacuum pack suction system. The left lower extremity and the hip were then prepped and draped in the routine sterile fashion. An incision was carried down to the level of the IT band, which was split in the line with the fibers of the IT band to reveal the gluteus medius residual attachment. These were reflected anteriorly. At this point, cultures were taken. The wound was copiously irrigated. The previously placed intramedullary device was removed. Further scraping and irrigation was then followed by removal of the acetabular cement spacer. After copious pulsatile lavage irrigation, attention was turned to the acetabulum. Serial and sequential reaming was done for a size 56 Tritanium trauma cup. This was put into place with multiple screw fixations. A 10-degree hooded liner was then popped into place with good fixation. The acetabulum felt extremely stable at this point. Attention was then turned to the proximal femur. Serial and sequential reaming and broaching were done for a size 14, 19 standard implant trials were undertaken. Trials were reduced as it felt to be very stable. The final 14 x [address]. This was followed by placement of the 19 standard proximal body at the appropriate degree of version. It was locked into place. The head was then put into place and reduced, taken through range of motion and thought to be excellent in all planes without any evidence for instability. Residual capsule was closed followed by reapproximation of the residual gluteus medius and minimus back to the greater trochanter. This was followed by closure of the IT band, followed by superficial and deep skin closure followed by skin rodrick. Sterile dressings were applied. The patient was awakened, taken to the recovery room in stable condition. All final needle and sponge counts were correct. OPERATIVE REPORT [id number] VERENA MONROE TRANSINT:[id number] Voice Confirmation ID: [id number] DOCUMENT ID: [id number] SLADE MENDEZ, JAY TRAYLOR at 0932 CC: [id number] DICTATION DATE: 07/23/171708 OPERATOR SUPPLY: 07/23/172048 ADM IN [facility] [address] [place] [address]
[2017-07-25] MEDS ORDERED: PERCOCET 10/3251 TA1 PO (09:36)
[2017-07-25] MEDS ORDERED: BACTRIM DS TABL1 TAB PO (09:36)
[2017-07-25] MEDS ORDERED: DOXYCYCLINE HY100 M2 PO (09:36)
--- NOTE | 2017-07-25 11:31 | NUR ---
FLEXIRIL PRESCRIPTION CALLED INTO [facility] IN [place], [place].
--- NOTE | 2017-07-25 12:00 | NUR ---
SL REMOVED.CATHETER TIP INTACT. DRESSING TO L HIP CHANGED. SOPHIE INTACT TO INCISION. SEROSANGUINOUS DRAINAGE NOTED TO OLD DRESSING. DISCHARGE TEACHING GIVEN TO PATIENT. VOICED UNDERSTANDING. SCRIPTS FOR PERCOCET, BACTRIM DS AND DOXYCYCLINE GIVEN TO PATIENT. AWAITING RIDE HOME FROM FAMILY THAT IS 2 HOURS AWAY.
[2017-07-25 12:51] VITALS: BP 165/54
--- NOTE | 2017-07-25 13:20 | NUR ---
DC'D HOME WITH MOTHER. ESCORTED TO VEHICLE VIA WC WITH BELONGINGS AND PRESCRIPTIONS.
--- NOTE | 2017-07-25 15:40 | NUR ---
LATE ENTRY 1200 PATIENT FOR DISCHARGE TO HOME TODAY. HER MOTHER IS PROVIDING TRANSPORTATION TO [place]. THERE IS ONE STEP TO ENTER THE HOME. PATIENT HAS WALKER AND RAISED TOILET SEAT. PATIENT IS FARILY INDEPENDENT IN HER CARE. SHE HAS AMBULATED WITH PHYSICAL THERAPY & WHEELED WALKER 250 FT WITH 10 % ASSIST. GOOD WEIGHT BEARING. PCP- DR HOFFMAN IN [facility]- [facility]- MILAGRO MONROE- MOTHER- [phone]. PATIENT WILL CONTACT MD FOR FOLLOW UP APPOINTMENTS TC TO [facility] AT [phone] AND SPOKE WITH SAWYER. ADVISED OF PATIENT'S DISCHARGE TO HOME. CM FAXED DISCHARGE INSTRUCTIONS AND REFERRAL TO [phone].
== END 2017-07-25 13:20 | disposition home health service (06) | DRG 468 ==
LOC: D.SDCHOLD 05:32 → D.MS 05:32 → D.SDCHOLD 12:30 → D.MS 15:47
PROVIDERS: ADMIT Orthopaedic Surgery
PROC: 0SPB08Z Removal of Spacer from Left Hip Joint, Open Approach (ICD-10-PCS; 2017-07-22)
PROC: 0SRB0JZ Replacement of Left Hip Joint with Synthetic Substitute, Open Approach (ICD-10-PCS; principal; 2017-07-22 12:30)
DX: Z47.32 Aftercare following explantation of hip joint prosthesis (principal); K59.04 Chronic idiopathic constipation; K21.9 Gastro-esophageal reflux disease without esophagitis; F32.9 Major depressive disorder, single episode, unspecified; E03.9 Hypothyroidism, unspecified; D64.9 Anemia, unspecified